=== PATIENT | female | born 1995 | race Two or more races ===

== ENCOUNTER 2019-02-06 19:17 | Observation (INO) | payer SELFPAY ==
[~2019-02-06] VITALS: Ht 160 cm; Wt 63.0 kg
[2019-02-06] MEDS ORDERED: PREN-217 PO (20:25)
== END 2019-02-06 20:50 | disposition home or self-care (01) ==
LOC: 4S 19:17
PROVIDERS: ADMIT Obstetrics & Gynecology; ATTEND Obstetrics & Gynecology
DX: O26.892 Other specified pregnancy related conditions, second trimester (principal); R09.89 Other specified symptoms and signs involving the circulatory and respiratory systems; Z3A.23 23 weeks gestation of pregnancy
CPT/HCPCS: 81002; G0378

== ENCOUNTER 2019-02-06 20:58 | Emergency (ER) | payer OTHER ==
[~2019-02-06] VITALS: Ht 160 cm; Wt 63.2 kg
[~2019-02-06 20:58] MED LIST: PREN-217 PO
[2019-02-06 21:49] LABS: RAPID GROUP A STREP NEGATIVE (NEGATIVE)
[2019-02-06 21:59] LABS: INFLUENZA TYPE A NEGATIVE FOR TYPE A (NEGATIVE); INFLUENZA TYPE B NEGATIVE FOR TYPE B (NEGATIVE)
[2019-02-06 22:21] VITALS: BP 118/74
== END 2019-02-06 22:34 | disposition home or self-care (01) ==
LOC: EMS 20:59
DX: O99.512 Diseases of the respiratory system complicating pregnancy, second trimester (principal); J06.9 Acute upper respiratory infection, unspecified; Z3A.22 22 weeks gestation of pregnancy
CPT/HCPCS: 87430; 87804